=== PATIENT | female | born 1950 | race Two or more races ===

== ENCOUNTER 2022-07-13 11:08 | Emergency (ER) | payer MEDICAID, SELFPAY ==
[2022-07-13 11:31] VITALS: BP 131/60; PULSE 74; RESP 16; TEMP 36.8; O2SAT 99
--- NOTE | 2022-07-13 12:10 | ED.ABDPAIN ---
HPI - Abdominal Pain General Chief Complaint: Abdominal Pain Stated Complaint: abd pain Time Seen by Provider: 07/13/22 12:10 Source: patient and RN notes reviewed Mode of arrival: ambulatory Limitations: no limitations History of Present Illness HPI narrative: 71 y/o presented for c/o epigastric pain for about 1 year, worsening for 6 months. Taking otc meds for symptoms with moderate relief. Pain is worse after eating. Endorses stress. Denies radiating pain, cp, palpitations, n/v/d/c/f/c. Staying with son in [place], from [place]. Requests son translate. No PCP. Related Data Allergies Allergy/AdvReac Type Severity Reaction Status Date / Time Penicillins Allergy Rash Verified 07/13/22 11:52 Review of Systems Review of Systems: CONSTITUTIONAL: Denies body aches, fever, chills ENT: Denies rhinorrhea, congestion CARDIOVASCULAR: Denies chest pain, palpitations, or edema. RESPIRATORY: Denies cough or dyspnea. GASTROINTESTINAL: Endorses abdominal pain, Denies nausea, vomiting, diarrhea, hematochezia/melena GENITOURINARY: Denies dysuria, hematuria, or CVA tenderness. SKIN: Denies rash, itching, or wounds. MUSCULOSKELETAL: Denies back pain, joint pain, or myalgia. NEUROLOGIC: Denies headache, numbness, tingling, or weakness. All systems reviewed & are unremarkable except as noted in HPI and below PMFSH Past Medical History Medical History (Updated 07/13/22 @ 12:24 by Vivienne Pitts, ELIZABETH) No pertinent past medical history Comments At time of signature, I have reviewed and agree with nursing past medical, surgical, social and family history unless otherwise noted. Please see nursing chart for further information. There is no relevant family history pertinent to the presenting complaint Exam Narrative: GENERAL: Well-appearing, and in no acute distress. EYES: EOMI. Conjunctivae normal. ENT: Mucous membranes pink and moist. CHEST: No respiratory distress. Clear to auscultation. HEART: Regular rate and rhythm. No murmur appreciated. Normal peripheral pulses. ABDOMEN: abd soft, nondistended, normal active bowel sounds. Tender epigastric area; No guarding, rebound tenderness, asymmetry EXTREMITIES: Normal range of motion. No edema. SKIN: Warm, dry, no rash. Capillary refill normal. Normal skin turgor. NEURO: No focal deficits. Alert and oriented x3. PSYCH: Normal affect. Course Course Emergency Course: Patient is aware of diagnosis, understands and agrees to treatment plan. Anticipatory guidance given. Patient agrees to follow-up as directed and is aware of reasons to seek care at the emergency department. Portions of this record may have been created with voice recognition software Level of Care: Express Care Visit Vital Signs Vital signs: Vital Signs Temperature 98.2 F 07/13/22 11:31 Pulse Rate 74 07/13/22 11:31 Respiratory Rate 16 07/13/22 11:31 Blood Pressure 131/60 07/13/22 11:31 Pulse Oximetry 99 07/13/22 11:31 Oxygen Delivery Room Air 07/13/22 11:31 Temperature 98.2 F 07/13/22 11:31 Pulse Rate 74 07/13/22 11:31 Respiratory Rate 16 07/13/22 11:31 Blood Pressure 131/60 07/13/22 11:31 Pulse Oximetry 99 07/13/22 11:31 Oxygen Delivery Room Air 07/13/22 11:31 MDM - Abdominal Pain MDM Narrative Medical decision making narrative: Will treat for reflux at this time. Discussed Rx and the possibility of following up with GI specialist as well as PCP. Advised supportive measures and signs/symptoms to go to the ER. Pt is appropriate for outpt treatment and f/u. Differential Diagnosis Differential diagnosis: Likely abdominal pain, constipation, diverticulitis, gastroenteritis, small bowel obstruction and other (gastritis, gerd/ PUD) Discharge Plan Discharge Clinical Impression: Chronic epigastric pain Patient Disposition: Home, Self-Care Condition: Stable Instructions: Diet for Stomach Ulcers and Gastritis (ED), GERD (Gastroesophageal Reflux Disease) (
== END 2022-07-13 12:30 | disposition home or self-care (01) ==
PROVIDERS: Emergency Provider Nurse Practitioner Family
DX: G89.29 Other chronic pain (principal); R10.13 Epigastric pain
CPT/HCPCS: 99213; G0463